=== PATIENT | female | born 1985 | race Caucasian/White ===

== ENCOUNTER 2020-02-04 16:24 | Emergency (ER) | payer OTHER, SELFPAY ==
[2020-02-05 13:18] LABS: SARS-CoV-2 MS2 Positive; SARS-CoV-2 N Gene Negative; SARS-CoV-2 S Gene Negative; SARS-CoV-2 by NAA Not Detected (NotDetected); SARS-CoV-2 orf1ab Negative
== END 2020-02-04 17:18 | disposition home or self-care (01) ==
LOC: ERS 16:24
DX: R51.9 Headache, unspecified (principal); R19.7 Diarrhea, unspecified; Z20.828 Contact with and (suspected) exposure to other viral communicable diseases; F32.9 Major depressive disorder, single episode, unspecified; F17.210 Nicotine dependence, cigarettes, uncomplicated
CPT/HCPCS: 87635; 99284; U0003

== ENCOUNTER 2021-02-03 14:06 | Emergency (ER) | payer OTHER ==
[2021-02-03] MEDS ORDERED: HYDROcodone/Acetaminophen 5/325 mg Tablet ONE (14:33)
[2021-02-03] MEDS ORDERED: Cyclobenzaprine 10 MG TAB ONE (14:34)
== END 2021-02-03 14:52 | disposition home or self-care (01) ==
LOC: ERS 14:06
DX: G89.29 Other chronic pain (principal); M54.2 Cervicalgia; I10 Essential (primary) hypertension; F17.210 Nicotine dependence, cigarettes, uncomplicated
CPT/HCPCS: 99283

== ENCOUNTER 2021-10-29 12:30 | Emergency (ER) | payer SELFPAY ==
[2021-10-29] MEDS ORDERED: Dicyclomine 20 MG/2 ML VIAL ONE (13:13)
[2021-10-29] MEDS ORDERED: Ondansetron ODT 4 MG TAB ONE (13:13)
== END 2021-10-29 14:19 | disposition home or self-care (01) ==
LOC: ERS 12:30
DX: U07.1 COVID-19 (principal); I10 Essential (primary) hypertension; F17.210 Nicotine dependence, cigarettes, uncomplicated
CPT/HCPCS: 96372; 99283; Q0162

== ENCOUNTER 2023-10-06 19:27 | Emergency (ER) | payer OTHER, SELFPAY ==
[2023-10-06] MEDS ORDERED: HYDROcodone/Acetaminophen 10/325 mg Tablet ONE (19:48)
== END 2023-10-06 20:25 | disposition home or self-care (01) ==
LOC: ERS 19:27
DX: S60.221A Contusion of right hand, initial encounter (principal); I10 Essential (primary) hypertension; F17.210 Nicotine dependence, cigarettes, uncomplicated; W22.01XA Walked into wall, initial encounter; Y93.89 Activity, other specified; Z79.899 Other long term (current) drug therapy